=== PATIENT | male | born 1950 | race African-American/Black ===

== ENCOUNTER 2023-07-29 22:35 | Emergency (ER) | payer MEDICAID ==
[~2023-07-29] VITALS: Ht 188 cm; Wt 83.0 kg
[2023-07-29 22:37] VITALS: TEMP 97.8; O2SAT 98
[2023-07-29] MEDS ORDERED: MORPHINE SULFATE 4 MG/ML CPJ (NOT FOR IM USE) IV STA (22:44)
[2023-07-29] MEDS: ONDANSETRON HCL 4MG/2ML INJ IV STA (22:44)
[2023-07-29] MEDS: SODIUM CHLORIDE 0.9% 1,000 ML IV ONE (22:45)
[2023-07-29] MEDS: MAGNESIUM/ALUMINUM HYDROXIDE/SIMETHICONE 30ML UDC PO ONE (23:00)
[2023-07-29] MEDS: PANTOPRAZOLE SODIUM 40 MG/VIAL IV ONE (23:00)
[2023-07-30 00:21] LABS: EOSINOPHILS % 0.2 % (0.0-5.0); HEMOGLOBIN. 14.9 g/dL (14.0-18.0); LYMPHOCYTES % 12.6 % (20.0-50.0); MEAN CORPUSCULAR HEMOGLOBIN 33.6 pg (28.0-32.0); MEAN CORPUSCULAR VOLUME 98.9 fL (80.0-94.0); MONOCYTES % 6.8 % (2.0-8.0); NEUTROPHILS % 79.4 % (40.0-76.0); PLATELET 188 x1000/uL (130-400); RED BLOOD CELL COUNT 4.45 mill/uL (4.7-6.1); RED CELL DISTRIBUTION WIDTH 13.6 % (11.6-14.6); WHITE BLOOD COUNT 8.2 x1000/uL (4.5-11.0)
[2023-07-30 00:29] LABS: PROTHROMBIN TIME 11.4 sec (9.6-11.0)
[2023-07-30 00:33] LABS: ALANINE AMINOTRANSFERASE 13 IU/L (10-49); ALBUMIN 4.5 g/dL (3.2-4.8); ASPARTATE AMINOTRANSFERASE 26 IU/L (<34); BILIRUBIN TOTAL 1.3 mg/dL (0.1-1.0); CARBON DIOXIDE 26 mEq/L (21-32); CHLORIDE 102 mEq/L (98-107); CREATININE 1.5 mg/dL (0.6-1.3); GLUCOSE 78 mg/dL (70-105); POTASSIUM 3.7 mEq/L (3.5-5.1); PROTEIN TOTAL 7.9 g/dL (6.0-8.3); SODIUM 134 mEq/L (136-145); UREA NITROGEN BLOOD 14 mg/dL (9-23)
[2023-07-30 00:35] LABS: TROPONIN I HIGH SENSITIVITY 7 ng/L (3.0-53)
[2023-07-30 01:04] LABS: ETHANOL BLOOD < 10 mg/dL (<10)
[2023-07-30] MEDS: MAGNESIUM/ALUMINUM HYDROXIDE/SIMETHICONE 30ML UDC PO NR (02:45)
[2023-07-30] MEDS: ONDANSETRON HCL 4MG/2ML INJ IV NR (02:45)
[2023-07-30] MEDS: MORPHINE SULFATE 4 MG/ML CPJ (NOT FOR IM USE) IV NR (02:45)
[2023-07-30] MEDS: PANTOPRAZOLE SODIUM 40 MG/VIAL IV NR (02:45)
[2023-07-30] MEDS ORDERED: IOHEXOL-300 100 ML BOTTLE ONE (05:49)
[2023-07-30] MEDS ORDERED: ONDA4TAB50 MT (06:00)
[2023-07-30] MEDS ORDERED: PROT40 MT (06:00)
[2023-07-30] MEDS ORDERED: ACET-2708 MT (06:00)
[2023-07-30 07:31] VITALS: BP 170/77; PULSE 67; RESP 16
== END 2023-07-30 07:53 | disposition home or self-care (01) ==
LOC: ER 22:35
DX: R10.13 Epigastric pain (principal); R11.2 Nausea with vomiting, unspecified; R19.7 Diarrhea, unspecified; K21.9 Gastro-esophageal reflux disease without esophagitis
CPT/HCPCS: 80053; 80320; 83605; 83690; 83735; 84100; 85025; 85610; 84484; 36415; 96361; 96374; 96375; 99285; 74177; J7030; Q9967; J2405; C9113; J2270; G0480